=== PATIENT | male | born 1945 | race Caucasian/White ===

== ENCOUNTER 2019-03-04 19:16 | Inpatient (IN) | payer MEDICARE, OTHER ==
[2019-03-04] MEDS: CEFTRIAXONE 1 GM/50 ML (PMX) 50 ML IVPB (20:05)
[2019-03-04] MEDS: ALBUTEROL 0.083% (NEB) 2.5 MG/3 ML AMP HHN (20:11)
[2019-03-04] MEDS: IPRATROPIUM (NEB) 0.5 MG/2.5 ML AMP INH (20:11)
[2019-03-04 20:18] LABS: ADD MAN DIFF? NO
[2019-03-04 20:19] LABS: BASOPHILS % 0.4 % (0.0-2.0); EOSINOPHILS # 0.1 10^3/ul (0.0-0.5); EOSINOPHILS % 1.2 % (0.0-7.0); HEMOGLOBIN 15.5 g/dl (14.0-18.0); LYMPHOCYTES % 10.6 % (15.0-51.0); MEAN CORPUSCULAR HEMOGLOBIN 30.3 pg (29.0-33.0); MEAN CORPUSCULAR VOLUME 91.8 fl (82.0-101.0); MEAN PLATELET VOLUME 9.6 fl (7.4-10.4); MONOCYTE # 0.6 10^3/ul (0.3-0.9); MONOCYTES % 6.7 % (0.0-11.0); NEUTROPHIL # 7.6 10^3/ul (1.6-7.5); NEUTROPHILS % 80.6 % (39.0-77.0); PLATELET COUNT 348 10^3/UL (140-415); RED BLOOD COUNT 5.12 10^6/ul (4.70-6.10); RED CELL DISTRIBUTION WIDTH 15.1 % (11.5-14.5)
[2019-03-04 20:19] LABS: WHITE BLOOD COUNT 9.4 10^3/ul (4.8-10.8)
[2019-03-04 20:25] LABS: ANION GAP 14 (5-13); BLOOD UREA NITROGEN 27 mg/dl (7-20); CALCIUM 9.4 mg/dl (8.4-10.2); CARBON DIOXIDE 23 mmol/L (21-31); CHLORIDE 104 mmol/L (97-110); GLUCOSE 140 mg/dl (70-220); POTASSIUM 3.8 mmol/L (3.5-5.1); SODIUM 141 mmol/L (135-144)
[2019-03-04] MEDS: AZITHROMYCIN 500MG/NS (PMX) 250 ML IVPB (21:11)
[2019-03-04] MEDS: SOD CHLORIDE 0.9% 1,000 ML IV (21:12)
[2019-03-04] MEDS ORDERED: BISACODYL (EC) 5 MG TAB PO (22:00)
[2019-03-04] MEDS ORDERED: ONDANSETRON 4 MG INJ IV ×2 (22:00)
[2019-03-04] MEDS ORDERED: ACETAMINOPHEN 325 MG TAB PO ×2 (22:00)
[2019-03-04] MEDS ORDERED: NACL 0.9% 3 ML SYG IV (22:00)
[2019-03-04] MEDS: IOHEXOL 100 ML (22:04)
[2019-03-04] MEDS: SOD CHLORIDE 0.9% 100 ML (22:04)
[2019-03-04 22:37] LABS: D-DIMER 3204.03 ng/ml (<460)
[2019-03-04 22:38] LABS: LACTIC ACID 2.1 mmol/L (0.5-2.0)
[2019-03-04 22:42] LABS: B-TYPE NATRIURETIC PEPTIDE 9890 PG/ML (0-125)
[2019-03-04 23:44] LABS: AADO2 Arterial 227.7 mmHg (7.0-24.0); Allen Test ACCEPTAB; Arterial Base Excess -4.8 mmol/L (-3.0-3); Arterial Blood Gas Oxygen Sat 98.7 mmHG (95.0-100.0); Arterial COHb 0.5 % (0.0-3.0); Arterial HCO3 20.7 mmol/L (22.0-26.0); Arterial MetHb 0.2 % (0.0-1.5); MODE VAPO-THERM; Site Right Radial
[2019-03-05 00:22] LABS: LACTIC ACID 2.2 mmol/L (0.5-2.0)
[2019-03-05] MEDS: FUROSEMIDE 40 MG INJ IV ×3 (02:54→18:13)
[2019-03-05] MEDS: ALBUTEROL/IPRATROPIUM (NEB) 3 ML AMP HHN (03:15)
[2019-03-05 06:16] LABS: ADD MAN DIFF? NO
[2019-03-05 06:21] LABS: BASOPHILS % 0.5 % (0.0-2.0); EOSINOPHILS # 0.2 10^3/ul (0.0-0.5); EOSINOPHILS % 3.4 % (0.0-7.0); HEMOGLOBIN 13.4 g/dl (14.0-18.0); LYMPHOCYTES # 1.2 10^3/ul (0.8-2.9); LYMPHOCYTES % 18.6 % (15.0-51.0); MEAN CORPUSCULAR HEMOGLOBIN 30.2 pg (29.0-33.0); MEAN CORPUSCULAR HGB CONC 32.7 g/dl (32.0-37.0); MEAN CORPUSCULAR VOLUME 92.3 fl (82.0-101.0); MEAN PLATELET VOLUME 9.7 fl (7.4-10.4); MONOCYTE # 0.5 10^3/ul (0.3-0.9); NEUTROPHIL # 4.5 10^3/ul (1.6-7.5); PLATELET COUNT 301 10^3/UL (140-415); RED BLOOD COUNT 4.44 10^6/ul (4.70-6.10); RED CELL DISTRIBUTION WIDTH 15.1 % (11.5-14.5)
[2019-03-05 06:21] LABS: WHITE BLOOD COUNT 6.5 10^3/ul (4.8-10.8)
[2019-03-05 06:49] LABS: C-REACTIVE PROTEIN 2.7 mg/dl (0.0-0.9)
[2019-03-05 07:01] LABS: ALANINE AMINOTRANSFERASE 37 IU/L (13-69); ALBUMIN 3.6 g/dl (3.3-4.9); ALBUMIN/GLOBULIN RATIO 0.97; ALKALINE PHOSPHATASE 94 IU/L (42-121); ANION GAP 12 (5-13); ASPARTATE AMINO TRANSFERASE 42 IU/L (15-46); BILIRUBIN,INDIRECT 0.5 mg/dl (0-1.1); BILIRUBIN,TOTAL 0.5 mg/dl (0.2-1.3); BLOOD UREA NITROGEN 24 mg/dl (7-20); CALCIUM 8.5 mg/dl (8.4-10.2); CARBON DIOXIDE 25 mmol/L (21-31); CHLORIDE 105 mmol/L (97-110); CHOL/HDL RATIO 2.8 RATIO; CHOLESTEROL 85 mg/dl (100-200); CREATININE 0.96 mg/dl (0.61-1.24); GLUCOSE 101 mg/dl (70-220); HDL CHOLESTEROL 30 mg/dl (31-75); LDL CHOLESTEROL,CALCULATED 42 mg/dl; MAGNESIUM 1.9 mg/dl (1.7-2.5); POTASSIUM 3.7 mmol/L (3.5-5.1); SODIUM 142 mmol/L (135-144); TOTAL PROTEIN 7.3 g/dl (6.1-8.1); TRIGLYCERIDES 63 mg/dl (0-149)
[2019-03-05 07:15] LABS: HEMOGLOBIN A1C 6.1 % (0-5.9)
[2019-03-05] MEDS: predniSONE 20 MG TAB PO (08:52)
[2019-03-05] MEDS: ENOXAPARIN 40 MG/0.4 ML SYG SC (09:17)
[2019-03-05] MEDS: CEFTRIAXONE 1 GM/50 ML (PMX) 50 ML IVPB (21:20)
[2019-03-05] MEDS: AZITHROMYCIN 500MG/NS (PMX) 250 ML IVPB (22:42)
[2019-03-06 05:46] LABS: ADD MAN DIFF? NO
[2019-03-06 05:47] LABS: BASOPHILS % 0.3 % (0.0-2.0); EOSINOPHILS % 0.1 % (0.0-7.0); HEMATOCRIT 42.3 % (42.0-52.0); HEMOGLOBIN 13.6 g/dl (14.0-18.0); LYMPHOCYTES # 0.9 10^3/ul (0.8-2.9); LYMPHOCYTES % 12.4 % (15.0-51.0); MEAN CORPUSCULAR HEMOGLOBIN 30.4 pg (29.0-33.0); MEAN CORPUSCULAR HGB CONC 32.2 g/dl (32.0-37.0); MEAN CORPUSCULAR VOLUME 94.4 fl (82.0-101.0); MEAN PLATELET VOLUME 9.9 fl (7.4-10.4); MONOCYTE # 0.7 10^3/ul (0.3-0.9); MONOCYTES % 8.9 % (0.0-11.0); NEUTROPHIL # 5.9 10^3/ul (1.6-7.5); NEUTROPHILS % 77.9 % (39.0-77.0); PLATELET COUNT 315 10^3/UL (140-415); RED BLOOD COUNT 4.48 10^6/ul (4.70-6.10); RED CELL DISTRIBUTION WIDTH 14.5 % (11.5-14.5)
[2019-03-06 05:47] LABS: WHITE BLOOD COUNT 7.6 10^3/ul (4.8-10.8)
[2019-03-06 06:33] LABS: ANION GAP 10 (5-13); BLOOD UREA NITROGEN 25 mg/dl (7-20); CALCIUM 8.9 mg/dl (8.4-10.2); CARBON DIOXIDE 31 mmol/L (21-31); CHLORIDE 100 mmol/L (97-110); CREATININE 1.21 mg/dl (0.61-1.24); GLUCOSE 113 mg/dl (70-220); POTASSIUM 4.1 mmol/L (3.5-5.1); SODIUM 141 mmol/L (135-144)
[2019-03-06] MEDS: FUROSEMIDE 40 MG INJ IV (06:36)
[2019-03-06 06:37] LABS: MAGNESIUM 2.3 mg/dl (1.7-2.5)
[2019-03-06 06:37] LABS: PHOSPHORUS 5.5 mg/dl (2.5-4.9)
[2019-03-06] MEDS: predniSONE 20 MG TAB PO (08:53)
[2019-03-06] MEDS: ENOXAPARIN 40 MG/0.4 ML SYG SC (08:55)
[2019-03-06 10:55] LABS: B-TYPE NATRIURETIC PEPTIDE 4130 PG/ML (0-125)
[2019-03-06] MEDS: METHYLPREDNISOLONE 40 MG INJ IV ×3 (12:01→23:38)
[2019-03-06] MEDS: SOD CHLORIDE 0.9% 1,000 ML IV (12:02)
[2019-03-06] MEDS: CEFTRIAXONE 1 GM/50 ML (PMX) 50 ML IVPB (19:39)
[2019-03-06] MEDS: AZITHROMYCIN 500MG/NS (PMX) 250 ML IVPB (21:40)
[2019-03-07] MEDS: SOD CHLORIDE 0.9% 1,000 ML IV (04:10)
[2019-03-07] MEDS: METHYLPREDNISOLONE 40 MG INJ IV ×4 (05:52→23:30)
[2019-03-07 06:54] LABS: ADD MAN DIFF? NO
[2019-03-07 06:58] LABS: BASOPHILS % 0.1 % (0.0-2.0); HEMATOCRIT 43.4 % (42.0-52.0); HEMOGLOBIN 13.9 g/dl (14.0-18.0); LYMPHOCYTES # 0.7 10^3/ul (0.8-2.9); LYMPHOCYTES % 8.8 % (15.0-51.0); MEAN CORPUSCULAR HEMOGLOBIN 30.3 pg (29.0-33.0); MEAN CORPUSCULAR VOLUME 94.6 fl (82.0-101.0); MEAN PLATELET VOLUME 9.9 fl (7.4-10.4); MONOCYTE # 0.2 10^3/ul (0.3-0.9); MONOCYTES % 2.4 % (0.0-11.0); NEUTROPHIL # 7.3 10^3/ul (1.6-7.5); NEUTROPHILS % 88.2 % (39.0-77.0); PLATELET COUNT 327 10^3/UL (140-415); RED BLOOD COUNT 4.59 10^6/ul (4.70-6.10); RED CELL DISTRIBUTION WIDTH 14.4 % (11.5-14.5)
[2019-03-07 06:58] LABS: WHITE BLOOD COUNT 8.3 10^3/ul (4.8-10.8)
[2019-03-07 07:30] LABS: MAGNESIUM 2.1 mg/dl (1.7-2.5)
[2019-03-07 07:30] LABS: PHOSPHORUS 4.6 mg/dl (2.5-4.9)
[2019-03-07 07:31] LABS: ANION GAP 9 (5-13); BLOOD UREA NITROGEN 25 mg/dl (7-20); CALCIUM 8.7 mg/dl (8.4-10.2); CARBON DIOXIDE 29 mmol/L (21-31); CHLORIDE 98 mmol/L (97-110); CREATININE 0.82 mg/dl (0.61-1.24); GLUCOSE 139 mg/dl (70-220); POTASSIUM 4.5 mmol/L (3.5-5.1); SODIUM 136 mmol/L (135-144)
[2019-03-07] MEDS: predniSONE 20 MG TAB PO (08:49)
[2019-03-07] MEDS: FLUTICASONE/VILANTEROL 100-25 INH (08:49)
[2019-03-07] MEDS: ENOXAPARIN 40 MG/0.4 ML SYG SC (08:53)
[2019-03-07] MEDS: CEFTRIAXONE 1 GM/50 ML (PMX) 50 ML IVPB (21:31)
[2019-03-07] MEDS: AZITHROMYCIN 500MG/NS (PMX) 250 ML IVPB (22:14)
[2019-03-08 05:53] LABS: ADD MAN DIFF? NO
[2019-03-08 05:57] LABS: ABNORMAL IP MESSAGE 1; BASOPHILS % 0.1 % (0.0-2.0); HEMATOCRIT 41.5 % (42.0-52.0); HEMOGLOBIN 13.3 g/dl (14.0-18.0); LYMPHOCYTES # 0.6 10^3/ul (0.8-2.9); LYMPHOCYTES % 5.2 % (15.0-51.0); MEAN CORPUSCULAR HEMOGLOBIN 30.4 pg (29.0-33.0); MEAN CORPUSCULAR VOLUME 94.7 fl (82.0-101.0); MEAN PLATELET VOLUME 9.9 fl (7.4-10.4); MONOCYTE # 0.5 10^3/ul (0.3-0.9); MONOCYTES % 4.2 % (0.0-11.0); NEUTROPHIL # 10.2 10^3/ul (1.6-7.5); NEUTROPHILS % 90.1 % (39.0-77.0); PLATELET COUNT 296 10^3/UL (140-415); POSITIVE DIFF @See below; RED BLOOD COUNT 4.38 10^6/ul (4.70-6.10); RED CELL DISTRIBUTION WIDTH 14.3 % (11.5-14.5)
[2019-03-08 05:57] LABS: WHITE BLOOD COUNT 11.3 10^3/ul (4.8-10.8)
[2019-03-08 06:09] LABS: MAGNESIUM 2.3 mg/dl (1.7-2.5)
[2019-03-08 06:10] LABS: ANION GAP 10 (5-13); BLOOD UREA NITROGEN 24 mg/dl (7-20); CALCIUM 8.5 mg/dl (8.4-10.2); CARBON DIOXIDE 28 mmol/L (21-31); CHLORIDE 99 mmol/L (97-110); CREATININE 0.78 mg/dl (0.61-1.24); GLUCOSE 172 mg/dl (70-220); SODIUM 137 mmol/L (135-144)
[2019-03-08] MEDS: METHYLPREDNISOLONE 40 MG INJ IV ×4 (06:51→23:50)
[2019-03-08] MEDS: predniSONE 20 MG TAB PO (08:56)
[2019-03-08] MEDS: LOSARTAN 25 MG TAB PO (08:57)
[2019-03-08] MEDS: ENOXAPARIN 40 MG/0.4 ML SYG SC (08:58)
[2019-03-08] MEDS: FLUTICASONE/VILANTEROL 100-25 INH (09:04)
[2019-03-08 09:52] LABS: AADO2 Arterial 140.2 mmHg (7.0-24.0); Allen Test ACCEPTAB; Arterial Base Excess -0.6 mmol/L (-3.0-3); Arterial Blood Gas Oxygen Sat 95.7 mmHG (95.0-100.0); Arterial COHb 0.2 % (0.0-3.0); Arterial Fraction of Oxyhgb 95.3 % (93.0-99.0); Arterial HCO3 25.3 mmol/L (22.0-26.0); Arterial MetHb 0.2 % (0.0-1.5); Arterial pCO2 46.4 mmhg (35-45); MODE NASAL CANNULA; Site Right Radial
[2019-03-08] MEDS: PIPER-TAZO 3.375 GM IV (PMX) 100 ML IVPB ×2 (14:47→21:13)
[2019-03-09 05:41] LABS: PROCALCITONIN <0.10 ng/mL (<0.10)
[2019-03-09] MEDS: PIPER-TAZO 3.375 GM IV (PMX) 100 ML IVPB ×3 (06:06→22:35)
[2019-03-09] MEDS: METHYLPREDNISOLONE 40 MG INJ IV ×3 (06:06→17:39)
[2019-03-09] MEDS: predniSONE 20 MG TAB PO (09:04)
[2019-03-09] MEDS: FLUTICASONE/VILANTEROL 100-25 INH (09:06)
[2019-03-09] MEDS: ENOXAPARIN 40 MG/0.4 ML SYG SC (09:09)
[2019-03-09] MEDS: LOSARTAN 25 MG TAB PO (09:13)
[2019-03-10] MEDS: METHYLPREDNISOLONE 40 MG INJ IV ×4 (00:05→21:03)
[2019-03-10] MEDS: PIPER-TAZO 3.375 GM IV (PMX) 100 ML IVPB ×3 (05:32→21:03)
[2019-03-10 06:06] LABS: ADD MAN DIFF? NO
[2019-03-10 06:26] LABS: ABNORMAL IP MESSAGE 1; BASOPHILS % 0.1 % (0.0-2.0); HEMATOCRIT 41.8 % (42.0-52.0); HEMOGLOBIN 13.4 g/dl (14.0-18.0); LYMPHOCYTES # 0.4 10^3/ul (0.8-2.9); MEAN CORPUSCULAR HGB CONC 32.1 g/dl (32.0-37.0); MEAN CORPUSCULAR VOLUME 93.7 fl (82.0-101.0); MEAN PLATELET VOLUME 9.9 fl (7.4-10.4); MONOCYTE # 0.4 10^3/ul (0.3-0.9); MONOCYTES % 3.7 % (0.0-11.0); NEUTROPHIL # 9.3 10^3/ul (1.6-7.5); NEUTROPHILS % 91.7 % (39.0-77.0); PLATELET COUNT 260 10^3/UL (140-415); POSITIVE DIFF @See below; RED BLOOD COUNT 4.46 10^6/ul (4.70-6.10); RED CELL DISTRIBUTION WIDTH 14.5 % (11.5-14.5)
[2019-03-10 06:26] LABS: WHITE BLOOD COUNT 10.2 10^3/ul (4.8-10.8)
[2019-03-10 06:48] LABS: MAGNESIUM 2.4 mg/dl (1.7-2.5)
[2019-03-10 06:48] LABS: PHOSPHORUS 4.1 mg/dl (2.5-4.9)
[2019-03-10 06:56] LABS: ANION GAP 7 (5-13); BLOOD UREA NITROGEN 24 mg/dl (7-20); CALCIUM 8.6 mg/dl (8.4-10.2); CARBON DIOXIDE 29 mmol/L (21-31); CHLORIDE 101 mmol/L (97-110); CREATININE 0.73 mg/dl (0.61-1.24); GLUCOSE 175 mg/dl (70-220); POTASSIUM 4.3 mmol/L (3.5-5.1); SODIUM 137 mmol/L (135-144)
[2019-03-10] MEDS: LOSARTAN 25 MG TAB PO (08:55)
[2019-03-10] MEDS: ENOXAPARIN 40 MG/0.4 ML SYG SC (08:56)
[2019-03-10] MEDS: FLUTICASONE/VILANTEROL 100-25 INH (10:58)
[2019-03-10] MEDS: DOCUSATE SODIUM 100 MG CAP PO (21:04)
[2019-03-11 06:04] LABS: ADD MAN DIFF? NO
[2019-03-11 06:05] LABS: ABNORMAL IP MESSAGE 1; BASOPHILS % 0.1 % (0.0-2.0); HEMATOCRIT 44.5 % (42.0-52.0); HEMOGLOBIN 14.5 g/dl (14.0-18.0); LYMPHOCYTES # 0.4 10^3/ul (0.8-2.9); LYMPHOCYTES % 4.6 % (15.0-51.0); MEAN CORPUSCULAR HEMOGLOBIN 30.3 pg (29.0-33.0); MEAN CORPUSCULAR HGB CONC 32.6 g/dl (32.0-37.0); MEAN CORPUSCULAR VOLUME 93.1 fl (82.0-101.0); MEAN PLATELET VOLUME 9.7 fl (7.4-10.4); MONOCYTE # 0.5 10^3/ul (0.3-0.9); MONOCYTES % 5.2 % (0.0-11.0); NEUTROPHIL # 8.6 10^3/ul (1.6-7.5); NEUTROPHILS % 89.1 % (39.0-77.0); PLATELET COUNT 244 10^3/UL (140-415); POSITIVE DIFF @See below; RED BLOOD COUNT 4.78 10^6/ul (4.70-6.10); RED CELL DISTRIBUTION WIDTH 14.6 % (11.5-14.5)
[2019-03-11 06:05] LABS: WHITE BLOOD COUNT 9.6 10^3/ul (4.8-10.8)
[2019-03-11] MEDS: METHYLPREDNISOLONE 40 MG INJ IV ×2 (06:14→20:42)
[2019-03-11] MEDS: PIPER-TAZO 3.375 GM IV (PMX) 100 ML IVPB ×3 (06:14→20:47)
[2019-03-11 06:31] LABS: MAGNESIUM 2.4 mg/dl (1.7-2.5)
[2019-03-11 06:37] LABS: ANION GAP 8 (5-13); BLOOD UREA NITROGEN 28 mg/dl (7-20); CALCIUM 9.1 mg/dl (8.4-10.2); CARBON DIOXIDE 32 mmol/L (21-31); CHLORIDE 99 mmol/L (97-110); CREATININE 0.87 mg/dl (0.61-1.24); GLUCOSE 205 mg/dl (70-220); POTASSIUM 5.2 mmol/L (3.5-5.1); SODIUM 139 mmol/L (135-144)
[2019-03-11] MEDS: ENOXAPARIN 40 MG/0.4 ML SYG SC (09:53)
[2019-03-11] MEDS: FLUTICASONE/VILANTEROL 100-25 INH (09:54)
[2019-03-11] MEDS: LOSARTAN 25 MG TAB PO (09:54)
[2019-03-11] MEDS: FUROSEMIDE 20 MG INJ IV (12:24)
[2019-03-12] MEDS ORDERED: ZOLPIDEM 5 MG TAB (01:38)
[2019-03-12] MEDS: ZOLPIDEM 5 MG TAB PO (01:48)
[2019-03-12] MEDS: PIPER-TAZO 3.375 GM IV (PMX) 100 ML IVPB (05:37)
[2019-03-12 05:50] LABS: ADD MAN DIFF? NO
[2019-03-12 05:52] LABS: WHITE BLOOD COUNT 8.9 10^3/ul (4.8-10.8)
[2019-03-12 05:52] LABS: ABNORMAL IP MESSAGE 1; BASOPHILS % 0.1 % (0.0-2.0); HEMATOCRIT 44.3 % (42.0-52.0); HEMOGLOBIN 14.5 g/dl (14.0-18.0); LYMPHOCYTES # 0.5 10^3/ul (0.8-2.9); LYMPHOCYTES % 5.8 % (15.0-51.0); MEAN CORPUSCULAR HEMOGLOBIN 30.3 pg (29.0-33.0); MEAN CORPUSCULAR HGB CONC 32.7 g/dl (32.0-37.0); MEAN CORPUSCULAR VOLUME 92.5 fl (82.0-101.0); MEAN PLATELET VOLUME 9.7 fl (7.4-10.4); MONOCYTE # 0.5 10^3/ul (0.3-0.9); MONOCYTES % 5.5 % (0.0-11.0); NEUTROPHIL # 7.8 10^3/ul (1.6-7.5); NEUTROPHILS % 87.8 % (39.0-77.0); PLATELET COUNT 246 10^3/UL (140-415); POSITIVE DIFF @See below; RED BLOOD COUNT 4.79 10^6/ul (4.70-6.10); RED CELL DISTRIBUTION WIDTH 14.7 % (11.5-14.5)
[2019-03-12 06:18] LABS: MAGNESIUM 2.4 mg/dl (1.7-2.5)
[2019-03-12 06:18] LABS: PHOSPHORUS 4.4 mg/dl (2.5-4.9)
[2019-03-12 06:20] LABS: ANION GAP 7 (5-13); BLOOD UREA NITROGEN 25 mg/dl (7-20); CALCIUM 8.4 mg/dl (8.4-10.2); CARBON DIOXIDE 33 mmol/L (21-31); CHLORIDE 98 mmol/L (97-110); CREATININE 0.77 mg/dl (0.61-1.24); GLUCOSE 160 mg/dl (70-220); POTASSIUM 4.5 mmol/L (3.5-5.1); SODIUM 138 mmol/L (135-144)
[2019-03-12] MEDS: ENOXAPARIN 40 MG/0.4 ML SYG SC (08:11)
[2019-03-12] MEDS: METHYLPREDNISOLONE 40 MG INJ IV ×2 (08:11→20:30)
[2019-03-12] MEDS: LOSARTAN 25 MG TAB PO (08:12)
[2019-03-12] MEDS: FLUTICASONE/VILANTEROL 100-25 INH (08:12)
[2019-03-13] MEDS: METHYLPREDNISOLONE 40 MG INJ IV (08:22)
[2019-03-13] MEDS: FLUTICASONE/VILANTEROL 100-25 INH (08:22)
[2019-03-13] MEDS: LOSARTAN 25 MG TAB PO (08:23)
[2019-03-13] MEDS: ENOXAPARIN 40 MG/0.4 ML SYG SC (08:24)
[2019-03-14] MEDS ORDERED: METHYLPREDNISOLONE 40 MG INJ IV (09:00)
== END 2019-03-13 18:45 | DRG 196 ==
LOC: 6WM 03-09 → E/R 19:16 → 6WM 21:35 → PP2 03-09 16:50 → 6WM 03-05 13:37
DX: J84.9 Interstitial pulmonary disease, unspecified (principal); J96.01 Acute respiratory failure with hypoxia; J18.9 Pneumonia, unspecified organism; I50.33 Acute on chronic diastolic (congestive) heart failure; J96.21 Acute and chronic respiratory failure with hypoxia; E87.2 Acidosis; N17.9 Acute kidney failure, unspecified; I11.0 Hypertensive heart disease with heart failure; J84.10 Pulmonary fibrosis, unspecified; Z87.891 Personal history of nicotine dependence; R73.03 Prediabetes; I07.1 Rheumatic tricuspid insufficiency; J47.9 Bronchiectasis, uncomplicated; I27.20 Pulmonary hypertension, unspecified
CPT/HCPCS: 36415; 36600; 71045; 71275; 80048; 80053; 80061; 82803; 83036; 83605; 83735; 83880; 84100; 84145; 84443; 85025; 85378; 86140; 87040-91; 87400; 93005; 93306; 93970; 94664; 96374; 96375; 99285-25

== ENCOUNTER 2019-07-09 21:26 | Emergency (ER) | payer MEDICARE, OTHER ==
[2019-07-09] MEDS ORDERED: CEFEPIME 2GM/50 ML (PMX) 50 ML IVPB (21:42)
[2019-07-09] MEDS ORDERED: SODIUM CHLORIDE 0.9% 1L BAG IV* (21:42)
[2019-07-09] MEDS ORDERED: SOD CHLORIDE 0.9% 1,000 ML IV (21:42)
[2019-07-09] MEDS ORDERED: VANCOMYCIN 1 GM (PMX) 250 ML IVPB (21:42)
[2019-07-09 21:49] LABS: WHITE BLOOD COUNT 13.2 10^3/ul (4.8-10.8)
[2019-07-09 21:49] LABS: ABNORMAL IP MESSAGE 1; HEMATOCRIT 51.2 % (42.0-52.0); HEMOGLOBIN 15.5 g/dl (14.0-18.0); MEAN CORPUSCULAR HEMOGLOBIN 31.7 pg (29.0-33.0); MEAN CORPUSCULAR HGB CONC 30.3 g/dl (32.0-37.0); MEAN CORPUSCULAR VOLUME 104.7 fl (82.0-101.0); MEAN PLATELET VOLUME 9.7 fl (7.4-10.4); PLATELET COUNT 230 10^3/UL (140-415); POSITIVE DIFF @See below; RED BLOOD COUNT 4.89 10^6/ul (4.70-6.10); RED CELL DISTRIBUTION WIDTH 14.1 % (11.5-14.5)
[2019-07-09 21:52] LABS: ADD MAN DIFF? YES
[2019-07-09 21:55] LABS: ALANINE AMINOTRANSFERASE 28 IU/L (13-69); ALBUMIN 4.7 g/dl (3.3-4.9); ALBUMIN/GLOBULIN RATIO 1.09; ALKALINE PHOSPHATASE 102 IU/L (42-121); ANION GAP 23 (5-13); ASPARTATE AMINO TRANSFERASE 54 IU/L (15-46); BILIRUBIN,INDIRECT 0.6 mg/dl (0-1.1); BILIRUBIN,TOTAL 0.6 mg/dl (0.2-1.3); BLOOD UREA NITROGEN 13 mg/dl (7-20); CALCIUM 9.7 mg/dl (8.4-10.2); CARBON DIOXIDE 21 mmol/L (21-31); CHLORIDE 96 mmol/L (97-110); CREATININE 1.24 mg/dl (0.61-1.24); ETHANOL < 10.0 mg/dl (0-0); GLUCOSE 228 mg/dl (70-220); INR 1.17; LIPASE 88 U/L (23-300); MAGNESIUM 2.2 mg/dl (1.7-2.5); PHOSPHORUS 9.9 mg/dl (2.5-4.9); POTASSIUM 3.8 mmol/L (3.5-5.1); PT RATIO 1.2; SODIUM 140 mmol/L (135-144)
[2019-07-09 21:56] LABS: PARTIAL THROMBOPLASTIN TIME 34.2 Sec (23.0-35.0)
[2019-07-09 22:06] LABS: TROPONIN-I 0.014 ng/ml (0.000-0.120)
[2019-07-09 22:49] LABS: BASOPHIL #M 0.6 10^3/ul (0.0-0.0); BASOPHILS % (M) 5 % (0-2); EOSINOPHILS % (M) 2 % (0-7); ERYTHROBLAST% (NRBC) (M) 1 % (0-0); LYMPHOCYTES #M 10.8 10^3/ul (0.8-2.9); LYMPHOCYTES % (M) 82 % (15-51); MONOCYTE #M 0.9 10^3/ul (0.3-0.9); MONOCYTES % (M) 7 % (0-11); PLATELET ESTIMATE NORMAL; POIKILOCYTOSIS 2+ (0-0); SEGMENTED NEUTROPHILS (M) % 4 % (39-77); SMUDGE%M 2 % (0-0)
== END 2019-07-10 00:50 | disposition expired ==
LOC: E/R 21:26
DX: I46.9 Cardiac arrest, cause unspecified (principal); I12.9 Hypertensive chronic kidney disease with stage 1 through stage 4 chronic kidney disease, or unspecified chronic kidney disease; N18.9 Chronic kidney disease, unspecified; J44.9 Chronic obstructive pulmonary disease, unspecified
CPT/HCPCS: 31500; 80053; 80307; 83690; 83735; 84100; 84484; 85025; 85610; 85730; 92950; 99285-25